=== PATIENT | female | born 1965 | race Caucasian/White ===

== ENCOUNTER 2016-08-12 22:15 | Emergency (ER) | payer OTHER ==
[~2016-08-12] VITALS: Ht 157.5 cm; Wt 90.7 kg
--- NOTE | 2016-08-12 22:53 | Emergency Room Report ---
History of Present Illness General Chief Complaint: Allergic Reaction Source: Patient Present Illness HPI This is a 51-year-old female with a history hypertension and she taking them as appropriate been on it for a year. She also has a cough and congestion and started on Bactrim 2 days ago. She took the Bactrim around noon. She also took the benazepril this morning. Around 5 she noticed one of her finger swollen and tight. End tonight she noticed her lip was getting swollen. Initially this happened the upper lip. By the time she got here the lip is swollen. No tongue edema. No rest or distress. No other new medication. Allergies: Coded Allergies: CODEINE (Verified Allergy, Unknown, 08/12/16) Patient History Past Medical History: see triage record, old chart reviewed Past Surgical History: other Pertinent Family History: none Social History: Denies: smoking Now: No Immunizations: other Reviewed Nursing Documentation: PMH: Agreed, PSxH: Agreed Nursing Documentation-PMH Past Medical History: No History, Except For Hx Hypertension: Yes Hx Diabetes: Yes Review of Systems Eye: Denies: blurred vision, eye pain ENT: Denies: ear pain, nose congestion, throat swelling Respiratory: Denies: cough, shortness of breath Cardiovascular: Denies: chest pain, palpitations Gastrointestinal: Denies: abdominal pain, diarrhea, nausea, vomiting Musculoskeletal: Denies: back pain, joint pain Skin: Denies: rash Neurological: Denies: headache, numbness Endocrine: Denies: increased thirst, increased urine Hematologic/Lymphatic: Denies: easy bruising All Other Systems: negative except mentioned in HPI Physical Exam Vital Signs Date Time Temp Pulse Resp B/P Pulse Ox O2 Delivery O2 Flow Rate FiO2 08/12/16 22:39 98.6 73 19 145/84 99 vitals normal Sp02 EP Interpretation: reviewed, normal General Appearance: well appearing, no apparent distress, alert Head: normocephalic, atraumatic Eyes: bilateral eye EOMI, bilateral eye PERRL ENT: hearing grossly normal, normal pharynx, other - Generalize edema to the upper lip. No tongue edema. Neck: full range of motion, supple, no meningismus, other - No stridor Respiratory: chest non-tender, lungs clear, normal breath sounds Cardiovascular #1: regular rate, rhythm, no murmur Gastrointestinal: normal bowel sounds, non tender, no mass, no organomegaly, no bruit, non-distended Musculoskeletal: back normal, gait/station normal, normal range of motion Psychiatric: mood/affect normal Skin: warm/dry Medical Decision Making Diagnostic Impression: Primary Impression: Allergic reaction Qualified Codes: T78.40XA - Allergy, unspecified, initial encounter Additional Impression: Renal insufficiency ER Course Patient presents with allergic reaction. This may be an angioedema secondary to JIAN inhibitor. She does not fit the profile that she's not . She's also just started Bactrim. The fact that she's not getting better is a concerning and leaned toward angioedema from JIAN inhibitor. Patient is protecting her airway. She stopped on the phone without a problem. No respiratory distress. I discussed the case with Dr. Ragsdale who is sent the patient for transfer to [facility]. Lab Results Impression labs normal Last Vital Signs Date Time Temp Pulse Resp B/P Pulse Ox O2 Delivery O2 Flow Rate FiO2 08/12/16 22:39 98.6 73 19 145/84 99 Status: worsened Disposition: [facility] Condition: Serious NICHOLE DEVINE M.D. Aug 12, 2016 22:53
[2016-08-12 22:55] VITALS: BP 145/84
[2016-08-12] MEDS ORDERED: Solu-MEDROL 125mg Inj IVP ONE (23:00)
[2016-08-12] MEDS ORDERED: DiphenhydrAMINE 50mg/ml Inj IVP ONE (23:00)
[2016-08-12 23:26] LABS: BASOPHILS % (AUTO) 1.8 % (0.0-2.0); LYMPHOCYTES % (AUTO) 30.7 % (20.0-45.0); MEAN CORPUSCULAR HEMOGLOBIN 30.5 PG (27.0-31.0); MEAN CORPUSCULAR HGB CONC 33.3 G/DL (32.0-36.0); MEAN CORPUSCULAR VOLUME 92 FL (80-99); MEAN PLATELET VOLUME 6.6 FL (6.5-10.1); MONOCYTES % (AUTO) 5.7 % (1.0-10.0); NEUTROPHILS % (AUTO) 59.8 % (45.0-75.0); PLATELET COUNT 364 K/UL (150-450); RED BLOOD COUNT 4.59 M/UL (4.20-5.40); RED CELL DISTRIBUTION WIDTH 11.7 % (11.6-14.8); WHITE BLOOD COUNT 11.4 K/UL (4.8-10.8)
[2016-08-12 23:55] LABS: CALCIUM 10.7 mg/dL (8.6-10.2); CREATININE 1.6 mg/dL (0.5-0.9); GLOMERULAR FILTRATION RATE 33.7 mL/min (>60); POTASSIUM 4.5 mEQ/L (3.4-4.9)
[2016-08-13] MEDS ORDERED: DiphenhydrAMINE 50mg/ml Inj IVP ONE (00:30)
[2016-08-13] MEDS ORDERED: Solu-MEDROL 125mg Inj IVP ONE (00:30)
[2016-08-13] MEDS ORDERED: Famotidine 20 MG/ 2ML VIAL IVP ONE (00:30)
[2016-08-13] MEDS ORDERED: Albuterol ud Inhalation HHN ONE (02:00)
[2016-08-13 03:47] VITALS: BP 140/80
== END 2016-08-13 03:49 | disposition short-term general hospital (02) ==
LOC: EMR 22:50
DX: T78.40XA Allergy, unspecified, initial encounter (principal); N28.9 Disorder of kidney and ureter, unspecified; I10 Essential (primary) hypertension; E11.9 Type 2 diabetes mellitus without complications; Z88.5 Allergy status to narcotic agent
CPT/HCPCS: 36415; 80048; 85025; 94640; 94664; 96374; 96375; 99284; J1200; J2930

== ENCOUNTER 2018-09-30 09:25 | Emergency (ER) | payer MEDICAID, OTHER ==
[~2018-09-30] VITALS: Ht 157.5 cm; Wt 93.9 kg
[2018-09-30] MEDS ORDERED: ALLOPURINOL100 M1 ORAL (09:36)
[2018-09-30] MEDS ORDERED: METFORMIN HCL1000 M1 ORAL (09:36)
[2018-09-30] MEDS ORDERED: METOPROLOL SUC100 MG ORAL (09:36)
[2018-09-30] MEDS ORDERED: LEVOTHYROXINE75 MCG ORAL (09:36)
[2018-09-30] MEDS ORDERED: ASPIR 8181 MG ORAL (09:36)
--- NOTE | 2018-09-30 09:41 | NUR ---
ED Nurse Note: Pt came into the Er w/ complaints of burning upon urination x 4 days. Pt went to see PCP and was prescribed bactrim. Pt had an allergic reaction and started itching so she stopped meds. Pt still has dysuria and burning upon urination.
[2018-09-30 09:43] VITALS: BP 160/90
[2018-09-30] MEDS ORDERED: Acetaminophen 500mg (ES) tab ORAL ONE (10:15)
[2018-09-30] MEDS ORDERED: Albuterol ud Inhalation HHN ONE (10:15)
[2018-09-30] MEDS ORDERED: Ipratropium 0.02% Inh Soln 2.5ml UD HHN ONE (10:15)
[2018-09-30 10:55] LABS: APPEARANCE,URINE SLIGHTLY CLOUDY; BILIRUBIN, URINE NEGATIVE (NEGATIVE); COLOR,URINE BROWN; GLUCOSE, URINE (UA) NEGATIVE (NEGATIVE); KETONES,URINE 1+ (NEGATIVE); LEUKOCYTE ESTERASE ,URINE 2+ (NEGATIVE); NITRITE,URINE NEGATIVE (NEGATIVE); PH,URINE 5 (4.5-8.0); PROTEIN,URINE 3+ (NEGATIVE); UROBILINOGEN,URINE 1 MG/DL (0.0-1.0)
--- NOTE | 2018-09-30 11:02 | Diagnostic Imaging Report ---
Indication: Cough Technique: One view of the chest Comparison: Findings: Lungs and pleural spaces are clear. Heart size is normal Impression: No acute process
--- NOTE | 2018-09-30 11:28 | Emergency Room Report ---
History of Present Illness General Chief Complaint: Upper Respiratory Illness Source: Patient Present Illness HPI Patient presents with 2 weeks of upper respiratory illness. She's been wheezing. She has a history of asthma. She's not taking prednisone at this time. A week ago she was treated for UTI with Bactrim and took only 2 doses and developed itching of her palms and stopped taking it. She still has dysuria at this time. She also has chest pain with the cough. This is not her worst attack. She denies any rashes. She did not receive a flu vaccination. The chest pain is rated 7/10 and more pleuritic. No calf pain or edema. Muscle aches. No headache. Mild sore throat. No rashes. She is here with her daughter who is ill with otitis media and asthma exacerbation. Allergies: Coded Allergies: BACLOFEN (Verified Allergy, Unknown, 09/30/18) CODEINE (Verified Allergy, Unknown, 08/12/16) SULFAMETHOXAZOLE (Verified Allergy, Unknown, 09/30/18) TRIMETHOPRIM (Verified Allergy, Unknown, 09/30/18) Patient History Past Medical History: see triage record Social History: Denies: smoking Social History Narrative With her daughter Last Menstrual Period: 06/15/18 Reviewed Nursing Documentation: PMH: Agreed; PSxH: Agreed Nursing Documentation-PMH Past Medical History: No History, Except For Hx Hypertension: Yes Hx Diabetes: Yes Review of Systems All Other Systems: negative except mentioned in HPI Physical Exam Vital Signs Date Time Temp Pulse Resp B/P (MAP) Pulse Ox O2 Delivery O2 Flow Rate FiO2 09/30/18 09:31 98.6 97 18 165/98 96 Room Air 09/30/18 09:43 98 Sp02 EP Interpretation: reviewed, normal General Appearance: well appearing, no apparent distress, GCS 15 Head: normocephalic Eyes: bilateral eye normal inspection, bilateral eye PERRL ENT: TMs + canals normal, moist mucus membranes, pharyngeal erythema Neck: supple Respiratory: no respiratory distress, no accessory muscle use, wheezing, expiration Cardiovascular #1: regular rate, rhythm Cardiovascular #2: 2+ radial (R) Gastrointestinal: normal inspection, normal bowel sounds, non tender, no mass, non-distended Musculoskeletal: back normal, gait/station normal, normal range of motion, no calf tenderness Neurologic: alert, oriented x3, grossly normal Psychiatric: mood/affect normal Skin: normal inspection, warm/dry Medical Decision Making Diagnostic Impression: Primary Impression: Asthmatic bronchitis Qualified Codes: J45.41 - Moderate persistent asthma with (acute) exacerbation Additional Impressions: Partially treated urinary tract infection Chest pain Qualified Codes: R07.89 - Other chest pain ER Course This patient with asthma presents with 2 complaints. One is wheezing and cough. The second is persistent dysuria. Differential includes asthmatic bronchitis, influenza, pneumonia, pulmonary embolus amongst others. Based on her physical exam pulmonary embolus is unlikely. Regarding dysuria she may have a partially treated urinary tract infection. She will be evaluated with influenza titer, urinalysis and a chest x-ray. Due to the chest pain and EKG will be evaluated. The patient will be treated with prednisone, breathing treatments and Tylenol. Influenza titer negative. Urinalysis with minimal pyuria. Chest x-ray clear. EKG without injury. Discussed findings with patient. Also discussed treatment plan. She states she feels she still has a UTI and requests antibiotics. Patient is improved after breathing treatments. Patient stable for outpatient observation and treatment. Laboratory Tests Test 09/30/18 10:20 Urine Color Brown Urine Appearance Slightly cloudy Urine pH 5 (4.5-8.0) Urine Specific [place] 1.025 (1.005-1.035) Urine Protein 3+ (NEGATIVE) H Urine Glucose (UA) Negative (NEGATIVE) Urine Ketones 1+ (NEGATIVE) H Urine Blood 5+ (NEGATIVE) H Urine Nitrite Negative (NEGATIVE) Urine Bilirubin Negative (NEGATIVE) Urine Urobilinogen 1 MG/DL (0.0-1.0) H Urine Leukocyte Esterase 2+ (NEGATIVE) H Urine RBC 40-60 /HPF (0 - 2) H Urine WBC 2-4 /HPF (0 - 2) Urine Squamous Epithelial Cells Few /LPF (NONE/OCC) Urine Bacteria Few /HPF (NONE) Microbiology Date/Time Source Procedure Growth Status 09/30/18 10:19 Nasal Nares Influenza Types A,B Antigen (PANKAJ) - Final Complete EKG Diagnostic Results Rate: normal Rhythm: NSR ST Segments: no acute changes Rhythm Strip Diag. Results EP Interpretation: yes Rhythm: NSR, no PVC's, no ectopy Chest X-Ray Diagnostic Results Chest X-Ray Diagnostic Results : Chest X-Ray Ordered: Yes Indication: Shortness of Breath EP Interpretation: Yes Interpretation: no consolidation, no effusion, no pneumothorax Impression: No acute disease Electronically Signed by: Electronically signed by Sam Esparza MD Last Vital Signs Date Time Temp Pulse Resp B/P (MAP) Pulse Ox O2 Delivery O2 Flow Rate FiO2 09/30/18 12:03 98.0 70 18 157/78 99 Room Air 21 Status: improved Disposition: HOME, SELF-CARE Condition: Improved Scripts Dextromethorphan Hb/Doxylamine (ROBITUSSIN NIGHTTIME COUGH DM) 237 Ml Liquid 5 ML PO Q6HR, #90 ML Prov: Sam Esparza MD 09/30/18 Prednisone* (PREDNISONE*) 20 Mg Tablet 40 MG ORAL DAILY, #10 TAB Prov: Sam Esparza MD 09/30/18 Tramadol Hcl* (ULTRAM*) 50 Mg Tablet 50 MG ORAL Q6H PRN for For Pain, #10 TAB 0 Refills Prov: Sam Esparza MD 09/30/18 Cephalexin* (KEFLEX*) 500 Mg Capsule 500 MG ORAL EVERY 6 HOURS, #28 CAP Prov: Sam Esparza MD 09/30/18 Referrals: [facility],REFERRING (PCP) Sam Esparza MD Sep 30, 2018 11:28
[2018-09-30] MEDS ORDERED: ROBITUSSIN NIG237 ML PO (11:41)
[2018-09-30] MEDS ORDERED: PREDNISONE20 MG ORAL (11:41)
[2018-09-30] MEDS ORDERED: CEPHALEXIN500 MG ORAL (11:41)
[2018-09-30] MEDS ORDERED: TRAMADOL HCL50 MG ORAL (11:41)
[2018-09-30 12:03] VITALS: BP 157/78
--- NOTE | 2018-09-30 12:04 | NUR ---
ED Nurse Note: Patient is being discharged from medical care with prescriptions. Awake, alert and oriented x3. ID band were removed. Patient ambulated out with all personal belongings with steady gait.
== END 2018-09-30 12:05 | disposition home or self-care (01) ==
LOC: EMR 09:52
DX: J45.41 Moderate persistent asthma with (acute) exacerbation (principal); N39.0 Urinary tract infection, site not specified; R07.9 Chest pain, unspecified; I10 Essential (primary) hypertension; E11.9 Type 2 diabetes mellitus without complications; Z88.5 Allergy status to narcotic agent; Z88.2 Allergy status to sulfonamides
CPT/HCPCS: 71045; 81003; 86710; 93005; 94640; 99284; J7512

== ENCOUNTER 2018-11-21 18:26 | Emergency (ER) | payer MEDICAID ==
[~2018-11-21] VITALS: Ht 157.5 cm; Wt 93.9 kg
[~2018-11-21 18:26] MED LIST: ALLOPURINOL100 M1 ORAL; ASPIR 8181 MG ORAL; CEPHALEXIN500 MG ORAL; LEVOTHYROXINE75 MCG ORAL; METFORMIN HCL1000 M1 ORAL; METOPROLOL SUC100 MG ORAL; PREDNISONE20 MG ORAL; ROBITUSSIN NIG237 ML PO; TRAMADOL HCL50 MG ORAL
[2018-11-21 18:30] VITALS: BP 159/88
--- NOTE | 2018-11-21 18:30 | NUR ---
ED Nurse Note: ambulated in to ER due to pain on the left shoulder radiating to left chest tightness since this morning around 0400. Denies SOB. Pt states that the tightness is on and off and lasts for few minutes at rest. Denies N/V
[2018-11-21] MEDS ORDERED: Ketorolac 30mg Inj IV ONE (19:00)
[2018-11-21] MEDS ORDERED: Ipratropium 0.02% Inh Soln 2.5ml UD HHN ONE (19:00)
[2018-11-21] MEDS ORDERED: Albuterol ud Inhalation HHN ONE (19:00)
[2018-11-21] MEDS ORDERED: Methocarbamol 500mg tab ORAL ONE (19:00)
--- NOTE | 2018-11-21 19:03 | NUR ---
HAND-OFF: Report given to AUDI Mena. Urine sent down to the lab.
--- NOTE | 2018-11-21 19:05 | Emergency Room Report ---
History of Present Illness General Chief Complaint: Chest Pain Source: Patient Present Illness HPI Patient presents with severe medial scapular pain that began last night. She's had a cough and thinks that her asthma may be related to this. She's had a cough and today coughed up some green and ramirez material. She also had some loose stool this morning that was ramirez in color. The pain is 9/10 at this time she's tried taking Tylenol last night and didn't help. She's using a pro-air inhaler. She has some minimal wheezing at this time. She's not taking steroids at this time and is not taking steroid inhaler. No rashes. No dysuria Seen here 09/30 for asthmatic bronchitis. This is the history at that time: Patient presents with 2 weeks of upper respiratory illness. She's been wheezing. She has a history of asthma. She's not taking prednisone at this time. A week ago she was treated for UTI with Bactrim and took only 2 doses and developed itching of her palms and stopped taking it. She still has dysuria at this time. She also has chest pain with the cough. This is not her worst attack. She denies any rashes. She did not receive a flu vaccination. The chest pain is rated 7/10 and more pleuritic. No calf pain or edema. Muscle aches. No headache. Mild sore throat. No rashes. She is here with her daughter who is ill with otitis media and asthma exacerbation. Allergies: Coded Allergies: BACLOFEN (Verified Allergy, Unknown, 09/30/18) SULFAMETHOXAZOLE (Verified Allergy, Unknown, 09/30/18) TRIMETHOPRIM (Verified Allergy, Unknown, 09/30/18) Patient History Past Medical History: see triage record, old chart reviewed Social History: Denies: smoking Social History Narrative with daughter Last Menstrual Period: menopause Reviewed Nursing Documentation: PMH: Agreed; PSxH: Agreed Nursing Documentation-PMH Past Medical History: No History, Except For Hx Hypertension: Yes Hx Diabetes: Yes Review of Systems All Other Systems: negative except mentioned in HPI Physical Exam Vital Signs Date Time Temp Pulse Resp B/P (MAP) Pulse Ox O2 Delivery O2 Flow Rate FiO2 11/21/18 18:29 98.1 88 18 181/82 97 Room Air Sp02 EP Interpretation: reviewed, normal General Appearance: well appearing, no apparent distress, GCS 15 Head: normocephalic Eyes: bilateral eye normal inspection, bilateral eye PERRL ENT: moist mucus membranes Neck: supple Respiratory: wheezing - Minimal, expiration, other - Medial scapular, trapezius tenderness Cardiovascular #1: regular rate, rhythm, no edema Cardiovascular #2: 2+ radial (R) Gastrointestinal: normal inspection, normal bowel sounds, non tender, no mass, non-distended, overweight Musculoskeletal: back normal, gait/station normal, normal range of motion, no calf tenderness Neurologic: alert, oriented x3, grossly normal Psychiatric: mood/affect normal Skin: normal inspection, warm/dry Medical Decision Making Diagnostic Impression: Primary Impression: Muscle spasm Additional Impression: Bronchospasm ER Course Patient presents with left scapular pain with worsening of asthma. Differential includes acute microinfarction, asthmatic bronchitis, acute myocardial infarction, muscle spasm amongst others. Based on her physical exam and vital signs pulmonary embolus less likely. She has some minimal wheezes at this time and has a productive cough and therefore evaluation of this is necessary. Evaluation will be with EKG, chest x-ray and labs. The patient will be treated with IV Toradol, Tylenol and breathing treatments. EKG with normal sinus rhythm and normal EKG. CXR no infiltrates. Labs unremarkable except for some pyuria (with contamination). Improved with treatments, but still with pain. [place] given. Discussed treatment plan with patient. Patient stable for outpatient observation and treatment. Laboratory Tests Test 11/21/18 19:00 White Blood Count 10.7 K/UL (4.8-10.8) Red Blood Count 4.81 M/UL (4.20-5.40) Hemoglobin 14.3 G/DL (12.0-16.0) Hematocrit 41.8 % (37.0-47.0) Mean Corpuscular Volume 87 FL (80-99) Mean Corpuscular Hemoglobin 29.7 PG (27.0-31.0) Mean Corpuscular Hemoglobin Concent 34.1 G/DL (32.0-36.0) Red Cell Distribution Width 12.2 % (11.6-14.8) Platelet Count 304 K/UL (150-450) Mean Platelet Volume 6.0 FL (6.5-10.1) L Neutrophils (%) (Auto) 59.8 % (45.0-75.0) Lymphocytes (%) (Auto) 31.4 % (20.0-45.0) Monocytes (%) (Auto) 5.9 % (1.0-10.0) Eosinophils (%) (Auto) 1.6 % (0.0-3.0) Basophils (%) (Auto) 1.3 % (0.0-2.0) Urine Color [place] Urine Appearance Slightly cloudy Urine pH 5 (4.5-8.0) Urine Specific [place] 1.025 (1.005-1.035) Urine Protein 2+ (NEGATIVE) H Urine Glucose (UA) Negative (NEGATIVE) Urine Ketones Negative (NEGATIVE) Urine Blood 3+ (NEGATIVE) H Urine Nitrite Negative (NEGATIVE) Urine Bilirubin Negative (NEGATIVE) Urine Ictotest Negative (NEGATIVE) Urine Urobilinogen Normal MG/DL (0.0-1.0) Urine Leukocyte Esterase 1+ (NEGATIVE) H Urine RBC 10-15 /HPF (0 - 2) H Urine WBC 5-10 /HPF (0 - 2) H Urine Squamous Epithelial Cells Moderate /LPF (NONE/OCC) H Urine Calcium Oxalate Crystals Many /LPF (NONE) Urine Bacteria Few /HPF (NONE) Sodium Level 142 MMOL/L (136-145) Potassium Level 3.8 MMOL/L (3.5-5.1) Chloride Level 103 MMOL/L (98-107) Carbon Dioxide Level 26 MMOL/L (21-32) Anion Gap 13 mmol/L (5-15) Blood Urea Nitrogen 14 mg/dL (7-18) Creatinine 0.9 MG/DL (0.55-1.30) Estimate Glomerular Filtration Rate > 60 mL/min (>60) Glucose Level 119 MG/DL (74-106) H Calcium Level 9.7 MG/DL (8.5-10.1) Total Bilirubin 0.2 MG/DL (0.2-1.0) Aspartate Amino Transferase (AST) 32 U/L (15-37) Alanine Aminotransferase (ALT) 53 U/L (12-78) Alkaline Phosphatase 111 U/L (46-116) Troponin I 0.000 ng/mL (0.000-0.056) Pro-B-Type Natriuretic Peptide 23 pg/mL (0-125) Total Protein 8.2 G/DL (6.4-8.2) Albumin 4.2 G/DL (3.4-5.0) Globulin 4.0 g/dL Albumin/Globulin Ratio 1.0 (1.0-2.7) EKG Diagnostic Results Rate: normal Rhythm: NSR ST Segments: no acute changes Rhythm Strip Diag. Results EP Interpretation: yes Rhythm: NSR, no PVC's, no ectopy Chest X-Ray Diagnostic Results Chest X-Ray Diagnostic Results : Chest X-Ray Ordered: Yes # of Views/Limited/Complete: 1 View Indication: Other EP Interpretation: Yes Interpretation: no consolidation, no effusion, no pneumothorax Impression: Other Electronically Signed by: Electronically signed by Sam Esparza MD Last Vital Signs Date Time Temp Pulse Resp B/P (MAP) Pulse Ox O2 Delivery O2 Flow Rate FiO2 11/21/18 21:04 98.1 85 14 154/74 98 Room Air 21 Status: improved Disposition: HOME, SELF-CARE Condition: Improved Scripts Beclomethasone Dipropionate 40MCG Oral Inh (QVAR 40*) 7.3 Gm Aer.w.adap 2 PUFFS INH TWICE A DAY, #1 GM 0 Refills Prov: Sam Esparza MD 11/21/18 Methocarbamol* (ROBAXIN*) 500 Mg Tablet 500 MG PO TID for muscle spasm, #10 TAB 0 Refills Prov: Sam Esparza MD 11/21/18 Ibuprofen* (MOTRIN*) 600 Mg Tablet 600 MG ORAL Q6H PRN for For Pain, #20 TAB Prov: Sam Esparza MD 11/21/18 Hydrocodone Bit/Acetaminophen 5-325* (NORCO 5-325*) 1 Each Tablet 1 TAB ORAL Q6H PRN for For Pain, #10 TAB 0 Refills Prov: Sam Esparza MD 11/21/18 Sam Esparza MD Nov 21, 2018 19:05
[2018-11-21 19:26] LABS: BASOPHILS % (AUTO) 1.3 % (0.0-2.0); EOSINOPHILS % (AUTO) 1.6 % (0.0-3.0); HEMATOCRIT 41.8 % (37.0-47.0); HEMOGLOBIN 14.3 G/DL (12.0-16.0); LYMPHOCYTES % (AUTO) 31.4 % (20.0-45.0); MEAN CORPUSCULAR VOLUME 87 FL (80-99); MONOCYTES % (AUTO) 5.9 % (1.0-10.0); NEUTROPHILS % (AUTO) 59.8 % (45.0-75.0); PLATELET COUNT 304 K/UL (150-450); RED BLOOD COUNT 4.81 M/UL (4.20-5.40); RED CELL DISTRIBUTION WIDTH 12.2 % (11.6-14.8); WHITE BLOOD COUNT 10.7 K/UL (4.8-10.8)
--- NOTE | 2018-11-21 19:41 | Diagnostic Imaging Report ---
EXAM: XR Chest, 1 View CLINICAL HISTORY: CP TECHNIQUE: Frontal view of the chest. COMPARISON: 09/30/18 cxr FINDINGS: Lungs: Unremarkable. No consolidation. Pleural space: Unremarkable. No pneumothorax. Heart: Unremarkable. No cardiomegaly. Mediastinum: Unremarkable. Bones/joints: Unremarkable. IMPRESSION: Normal chest x-ray.
[2018-11-21 19:45] LABS: APPEARANCE,URINE SLIGHTLY CLOUDY; BILIRUBIN, URINE NEGATIVE (NEGATIVE); COLOR,URINE AMBER; GLUCOSE, URINE (UA) NEGATIVE (NEGATIVE); KETONES,URINE NEGATIVE (NEGATIVE); LEUKOCYTE ESTERASE ,URINE 1+ (NEGATIVE); NITRITE,URINE NEGATIVE (NEGATIVE); PH,URINE 5 (4.5-8.0); PROTEIN,URINE 2+ (NEGATIVE); UROBILINOGEN,URINE NORMAL MG/DL (0.0-1.0)
[2018-11-21 19:57] LABS: ANION GAP 13 mmol/L (5-15); BLOOD UREA NITROGEN 14 mg/dL (7-18); CALCIUM 9.7 MG/DL (8.5-10.1); CARBON DIOXIDE 26 MMOL/L (21-32); CHLORIDE 103 MMOL/L (98-107); CREATININE 0.9 MG/DL (0.55-1.30); POTASSIUM 3.8 MMOL/L (3.5-5.1); SODIUM 142 MMOL/L (136-145)
[2018-11-21 20:15] LABS: ALANINE AMINOTRANSFERASE 53 U/L (12-78); ALBUMIN 4.2 G/DL (3.4-5.0); ALKALINE PHOSPHATASE 111 U/L (46-116); ASPARTATE AMINO TRANSFERASE 32 U/L (15-37); BILIRUBIN,TOTAL 0.2 MG/DL (0.2-1.0)
[2018-11-21] MEDS ORDERED: HYDROcodone/Acetamin 5/325 tab ORAL ONE (20:30)
[2018-11-21] MEDS ORDERED: NORCO 5-325 TA1 EACH ORAL (20:54)
[2018-11-21] MEDS ORDERED: ROBAXIN500 MG PO (20:54)
[2018-11-21] MEDS ORDERED: QVAR7.3 GM INH (20:54)
[2018-11-21] MEDS ORDERED: IBUPROFEN600 MG ORAL (20:54)
[2018-11-21 21:02] VITALS: BP 154/74
--- NOTE | 2018-11-21 21:03 | NUR ---
ED Nurse Note: Patient cleared for discharge by CAROLYN. Patient AOx4, VSS, ambulatory with steady gait, no s/s of acute distress noted at this time. Patient provided with discharge instructions and medication prescriptions. patient verbalized understanding. patient took all personal belongings with her. Patient ID band and IV access removed. patient instructed to follow up with PCP in 1 week. Patient stated she was taking and UBER home.
[2018-11-21 21:04] VITALS: BP 154/74
== END 2018-11-21 21:13 | disposition home or self-care (01) ==
LOC: EMR 19:09
DX: J98.01 Acute bronchospasm (principal); M62.838 Other muscle spasm; I10 Essential (primary) hypertension; E11.9 Type 2 diabetes mellitus without complications; Z88.8 Allergy status to other drugs, medicaments and biological substances; Z88.2 Allergy status to sulfonamides; R07.9 Chest pain, unspecified; E66.3 Overweight; Z68.37 Body mass index [BMI] 37.0-37.9, adult
CPT/HCPCS: 36415; 71045; 80053; 81003; 83880; 84484; 85025; 93005; 94640; 94664; 96374; 99284; J1885

== ENCOUNTER 2018-11-28 16:09 | Emergency (ER) | payer MEDICAID ==
[~2018-11-28] VITALS: Ht 157.5 cm; Wt 93.0 kg
[~2018-11-28 16:09] MED LIST changes: +IBUPROFEN600 MG ORAL; +NORCO 5-325 TA1 EACH ORAL; +QVAR7.3 GM INH; +ROBAXIN500 MG PO
[2018-11-28 16:53] VITALS: BP 169/84
[2018-11-28] MEDS ORDERED: LORATADINE10 M1 PO (16:57)
[2018-11-28] MEDS ORDERED: MONTELUKAST SOD10 MG ORAL (16:57)
[2018-11-28] MEDS ORDERED: ACYCLOVIR800 MG ORAL (16:59)
[2018-11-28 17:17] VITALS: BP 157/79
[2018-11-28] MEDS ORDERED: ONDANSETRON ODT4 MG BC (17:31)
--- NOTE | 2018-11-28 20:54 | Emergency Room Report ---
History of Present Illness General Chief Complaint: Dyspnea/Respdistress Source: Patient Present Illness HPI 53-year-old female presents ED for evaluation. Patient complaining of pain and rash to her left chest and left upper back. States she had pain about one week ago and was seen in the ED. Had no rash at that time. States pain has not resolved so she came to the ED. Denies shortness of breath. Denies fevers or chills. Denies sick contacts or recent travel. No other aggravating relieving factors. Denies any other associated symptoms Allergies: Coded Allergies: BACLOFEN (Verified Allergy, Unknown, 09/30/18) SULFAMETHOXAZOLE (Verified Allergy, Unknown, 09/30/18) TRIMETHOPRIM (Verified Allergy, Unknown, 09/30/18) Uncoded Allergies: SHELLFISH (Allergy, Unknown, 11/28/18) Patient History Past Medical History: DM, HTN Past Surgical History: none Pertinent Family History: none Social History: Denies: smoking, alcohol use, drug use Last Menstrual Period: 1 year ago Now: No Immunizations: UTD Reviewed Nursing Documentation: PMH: Agreed; PSxH: Agreed Nursing Documentation-PMH Past Medical History: No History, Except For Hx Hypertension: Yes Hx Diabetes: Yes Review of Systems All Other Systems: negative except mentioned in HPI Physical Exam Vital Signs Date Time Temp Pulse Resp B/P (MAP) Pulse Ox O2 Delivery O2 Flow Rate FiO2 11/28/18 16:18 98.8 97 16 169/84 96 Room Air Sp02 EP Interpretation: reviewed, normal General Appearance: no apparent distress, alert, GCS 15, non-toxic Head: normocephalic Eyes: bilateral eye normal inspection, bilateral eye PERRL ENT: normal ENT inspection Neck: normal inspection Respiratory: chest non-tender, lungs clear, normal breath sounds, speaking full sentences Cardiovascular #1: regular rate, rhythm, no edema Gastrointestinal: normal bowel sounds, non tender, soft, non-distended, no guarding, no rebound Rectal: deferred Genitourinary: no CVA tenderness Musculoskeletal: normal inspection Neurologic: alert, oriented x3, responsive, motor strength/tone normal, sensory intact, speech normal Psychiatric: judgement/insight normal, memory normal, mood/affect normal, no suicidal/homicidal ideation Skin: rash - vesicular rash in clusters noted to L breast, L upper back ( 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 After initial history, physical exam reveals a female in no acute distress. On exam there is a vesicular rash coalescing on the left upper chest and left upper back. Nonerythematous base Discussed findings with patient. Consistent with shingles. Patient states that she had been prescribed [place] for the pain prior to the onset of rash. States that she was also prescribed Imitrex by her PMD for headaches. I explained that we or unable to provide any additional pain medication however we will prescribe acyclovir to treat the rash. contact precautions given. Explained that she is highly contagious at this point. [employer] close outpatient follow-up. States she has a PMD. Diagnosis - shingles stable and discharged to home with prescription for Acyclovir. Instructed to followup with PMD. Instructed return to ED if symptoms recur or worsen Last Vital Signs Date Time Temp Pulse Resp B/P (MAP) Pulse Ox O2 Delivery O2 Flow Rate FiO2 11/28/18 17:17 98.9 74 18 157/79 98 Room Air Status: improved Disposition: HOME, SELF-CARE Condition: Stable Scripts Ondansetron Odt* (ZOFRAN ODT*) 4 Mg Tab.rapdis 4 MG BC EVERY 6 HOURS PRN for Nausea & Vomiting, #30 TAB 0 Refills Prov: Ramsey Ruff MD 11/28/18 Acyclovir* (ZOVIRAX*) 800 Mg Tablet 800 MG ORAL FIVE TIMES A DAY for 7 Days, TAB Prov: Ramsey Ruff MD 11/28/18 Referrals: NON PHYSICIAN (PCP) Patient Instructions: Cindy [id number] Ramsey Ruff MD Nov 28, 2018 20:54
== END 2018-11-28 17:40 | disposition home or self-care (01) ==
LOC: EMR 17:33
DX: B02.8 Zoster with other complications (principal); Z88.2 Allergy status to sulfonamides; Z88.8 Allergy status to other drugs, medicaments and biological substances; Z91.013 Allergy to seafood; E11.9 Type 2 diabetes mellitus without complications; I10 Essential (primary) hypertension
CPT/HCPCS: 99282